=== PATIENT | male | born 1955 | race Caucasian/White ===

== ENCOUNTER 2023-08-04 14:56 | Outpatient (CLI) | payer MEDICARE, SELFPAY ==
--- NOTE | 2023-08-04 15:30 | MR_ITS ---
[address] [address] Phone:?[phone] Fax:?[phone] Referring Physician Information: Narciso Stockton M.D. [address] [facility] [address] Phone:?[phone] Fax:?[phone] Patient:Minal Escobar D.O.B:?1955 Sex:?Male Phone:?[phone] [facility] MRN:?[id number] Exam Date:?08/04/2023 EXAM: MRI OF THE RIGHT KNEE CLINICAL INFORMATION: The patient is a 68-year-old with right knee pain. Evaluate for medial meniscal tear. PRIOR SURGERY: None reported. COMPARISON STUDIES: Comparison is made to prior radiographs dated 08/02/2023. TECHNICAL INFORMATION: Imaging was performed on a high-field, 1.5 Graciela MR scanner. Axial proton-density and fat-suppressed T2 imaging of the right knee was performed in addition to sagittal proton-density and sagittal fat-suppressed proton-density imaging. Coronal proton-density and coronal STIR imaging was also produced. FINDINGS: Articular/Extraarticular collections: Effusion: Moderate. Popliteal cyst: Minimal. Loose bodies: No well-defined intra-articular loose bodies are present. Subcutaneous and extraarticular soft tissues: Within normal limits. Osseous structures: There is reactive marrow edema along the medial aspects of the medial femoral condyle and medial tibial plateau, in keeping with the meniscal tearing discussed below. Additional cortical irregularity, subcortical edema, and subcortical cystic change can be seen along the central and posterior articular surfaces of the medial femoral condyle on sagittal series 6 image 24, in keeping with chondromalacia and chondral loss discussed below. No other bony abnormalities about the knee are seen. Ligamentous structures: ACL: Intact and normal in appearance. PCL: Intact and normal in appearance. MCL: Chronic residual changes of a prior incomplete MCL sprain can be seen with thickening and splitting of the proximal and mid fibers on coronal series 7 image 19. Adjacent mild soft tissue edema and/or hemorrhage is noted. No transverse disruption of MCL fibers can be seen. LCL: Intact and normal in appearance. Posterolateral corner: Intact and normal in appearance. Posteromedial corner: No posteromedial corner soft tissue injury. Semimembranosus and pes anserine tendons demonstrate no tendinopathy or associated bursitis. Extensor mechanism/Patellar retinacular structures: Patellar tendon: Intact, without tendinopathy. Quadriceps tendon: Intact, without tendinopathy. Retinacula: The medial and lateral retinacula are intact. The medial patellofemoral ligament is intact. Medial compartment: Medial meniscus: The medial meniscus is abnormal in appearance. There is broad- based, complex tearing of the middle and posterior portions of the medial meniscus seen on sagittal series 5 image 24 as well as on coronal series 7 images 20 and 23. The broad-based area of tearing measures approximately 23 mm in mediolateral dimension and 28 mm in anteroposterior dimension. Extension of the tearing can be seen to the meniscal attachment. No definite evidence for parameniscal cyst formation can be seen. The tearing involves the superior and inferior surfaces as well as the apical free edge. The anterior horn appears intact. Medial femoral condyle: Full-thickness and near full-thickness chondral loss can be seen along the central and posterior articular surfaces of the medial femoral condyle on sagittal series 5 image 24, measuring 28 mm in greatest dimension. Underlying bony changes are seen. Medial tibial plateau: Grade II to III chondromalacia can be seen along the weightbearing surfaces of the medial tibial plateau. Lateral compartment: Lateral meniscus: No evidence for lateral meniscal tearing is present. No evidence for parameniscal cyst formation can be seen. Lateral femoral condyle: No chondromalacia, chondral defect, or osteochondral abnormality. Lateral tibial plateau: No chondromalacia, chondral defect, or osteochondral abnormality. Patellofemoral compartment: Patella: There are broad-based changes of grade II to III chondromalacia involving the patellar apex and adjacent portions of the medial and lateral facets on axial series 3 image 11, measuring 22 mm in mediolateral dimension. No other chondral injuries are seen. Trochlea: No chondromalacia, chondral defect, or osteochondral abnormality. Neurovascular: No definite neurovascular abnormalities are seen. CONCLUSION: 1. Broad-based, complex tearing of the middle and posterior portions of the medial meniscus. No lateral meniscal tearing is seen. 2. 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 3. Chronic incomplete MCL sprain. The cruciate ligaments appear intact. 4. Moderate knee joint effusion and minimal popliteal cyst. AEC Electronically signed on 08/05/2023 10:17:00 AM by Naresh Hernandez M.D.
== END 2023-08-04 14:57 | disposition home or self-care (01) ==
LOC: MRI 14:58
PROVIDERS: PCP Surgery; Visit Provider Orthopaedic Surgery
DX: M25.561 Pain in right knee (principal); S83.231A Complex tear of medial meniscus, current injury, right knee, initial encounter; M22.41 Chondromalacia patellae, right knee; S83.411A Sprain of medial collateral ligament of right knee, initial encounter; M25.461 Effusion, right knee; M71.21 Synovial cyst of popliteal space [Baker], right knee
CPT/HCPCS: 73721

== ENCOUNTER 2023-08-17 10:08 | Day surgery (SDC) | payer MEDICARE, SELFPAY ==
[2023-08-17] VITALS (17 sets, daily range): BP systolic 74–143; BP diastolic 44–85; PULSE 40–52; RESP 12–16; TEMP 36.1–36.6; O2SAT 95–98; BMI 29.2
--- OUTSIDE RECORDS SUMMARY | 2023-08-17 10:10 | XMS_ITS | Clinical Summary ---
Author Name Unknown Organization [facility] Address [place], [place] [address] Care Team Providers Care Lead Software Test Engineer Name Role Phone Kingston Arreola MD Primary Care Provider [phone] Allergies Active Allergy Reactions Criticality Noted Date Comments Amoxicillin Hives Egg Throat Swelling/Closing 08/26/2006 Terbinafine Rash 08/12/2023 Medications Medication Sig Dispensed Refills Start Date End Date Status triamcinolone (ARISTOCORT; KENALOG) 0.1 % creamIndications: Dermatitis Apply topically to affected area(s) 2 times daily. 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 90 Tablet 07/01/2021 08/12/2023 Discontinued (*Patient states no longer taking) Active Problems Problem Noted Date Diagnosed Date Nuclear senile cataract of both eyes 02/23/2020 Presbyopia 02/23/2020 Hyperopia of both eyes 02/23/2020 Displacement of lumbar inter vertebral disc without myelopathy 05/18/2008 Encounters Date Type Department Care Team Description 08/12/2023 11:55 AM CDT Preop Visit [facility] [address] [place] [address] Kingston Arreola MD Preoperative Exam (Right knee orthoscopic surgery 08/17/[address] [facility] [address]. Stockton) 08/12/2023 Travel 08/04/2023 Orders Only [facility] Scanner 1 scan: (1-Ord) PAGETON H+C, KNEE RT, 08/04/2023 from Last 3 Months Immunizations Name Administration Dates Next Due COVID-19 vaccine ([employer] 30mcg/0.3mL) 12YO+ SOHA-SUCROSE PF, MDV 09/25/2021 Td (Age >=7 Years) 07/26/2002 Tdap 07/09/2021,06/05/2011 Zoster (Shingrix-RZV, recombinant) 07/09/2021 Family History Medical History Relation Name Comments Arthritis Father Cancer Father esophageal, d at 72 Heart Disease Father MIs in 50s Arthritis Mother Heart Disease Mother at 83 of CHF. no [place] Diabetes Paternal Aunt Diabetes Paternal Grandfather Cancer-prostate Paternal Uncle in 80s Diabetes Sister 1 type I Diabetes Sister 2 type 2 Relation Name Status Comments Father Mother Paternal Aunt Paternal Grandfather Paternal Uncle Sister 1 Sister 2 Social History Tobacco Use Types Packs/Day Years Used Date Smoking Tobacco: Former Cigarettes 1 30 0 04/12/1964 - 04/12/1994 Smokeless Tobacco: Former Chew Quit: 06/10/2009 Tobacco Cessation:Counseling Given: Yes Alcohol Use Standard Drinks/Week Comments Yes 0 (1 standard drink = 0.6 oz pure alcohol) 2-4 drinks a day; now 1 drink 3-4 days a week PHQ-2 Answer Date Recorded PHQ-2 TOTAL SCORE 0 07/01/2021 Social Connections Answer Date Recorded Frequency of Communication with Friends and Fami ly 0 08/12/2023 Financial Resource Strain Answer Date R ecorded Difficulty of Paying Living Expenses 3 08/12/2023 Difficulty of Paying Living Expenses Not on file 08/12/2023 Food Insecurity Answer Date Recorded Worried About Running Out of Food in the Last Ye ar 1 08/12/2023 Transportation Needs Answer Date Record ed Lack of Transportation (Medical) 1 08/12/2023 Housing Stability Answer Date Recorded Unable to Pay for Housing in the Last Year 1 08/12/2023 Sex and Gender Information Value Date Recorded Sex Assigned at Not on file Gender Identity Not on file Sexual Orientation Not on file Obstetrics History Last Filed Vital Signs Vital Sign Reading Time Taken Comments Blood Pressure 119/76 08/12/2023 11:55 AM CDT Pulse 52 08/12/2023 11:55 AM CDT Temperature 36.3 ??C (97.4 ??F) 11/24/2018 9:53 AM CD T Respiratory Rate - - Oxygen Saturation 98% 08/12/2023 11:55 AM CDT Inhaled Oxygen Concentration - - Weight 92.5 kg (204 lb) 08/12/2023 11:55 AM CDT Height 181 cm (5' 11.26) 07/01/2021 10:47 AM CD T Body Mass Index 28.24 07/01/2021 10:47 AM CDT Plan of Treatment Health Maintenance Due Date Last Done Comments AAA screening age 65-74 01/03/2020 Pneumococcal series for age 65+ (1 of 1 - PCV) 01/03/2020 Zoster (shingles) series for age 50+ (2 of 2) 09/03/2021 07/09/2021 BMI (ht and wt on same day) for age 18+ 07/01/2022 07/01/2021, 09/27/2018, 08/25/2018, Additional history exists Depression screening for age 12+ 07/02/2022 07/02/2021, 07/01/2021, 09/27/2018, Additional history exists Medicare Wellness for age 65+ 07/02/2022 07/01/2021 COVID-19 vaccine series (2022- season) 2022 09/25/2021, 02/11/2021, 07/13/2020, Additional history exists Colonoscopy through age 75 09/01/202308/31 ([facility]), 08/26/2006, 08/26/2006, Additional history exists Lipids for age 45-75 07/01/2026 07/01/2021, 09/27/2018, 06/22/2016, Additional history exists Tetanus booster 07/10/2031 07/09/2021, 05/14, 07/26/2002 Hepatitis C screening for ag e 18-79 Completed 06/22/2016 Tdap Completed 07/09/2021, 06/05/2011 Procedures Procedure Name Priority Date/Time Associated Diagnosis Comments SCAN-MRI INTERPRETATION 08/04/19 24 12:00 AM CDT LIPID PANEL Routine 07/01/2021 12:02 PM CDT Screening, lipid ANTI HCV Routine 06/22/2016 9:04 AM CDT Need for hepatitis C screening test SCAN-COLONOSCOPY 08/26/2006 9:00 AM CDT from Last 3 Months or Most Recently Relevant to Health Maintenance Results * SCAN-MRI INTERPRETATION (08/04/2023 12:00 AM CDT) Anatomical Region Laterality Modality Other Scanner OTHER * (ABNORMAL) LIPID PANEL (07/01/2021 12:02 PM CDT) CHOLESTEROL,TOTAL 209(H) 100 - 199 mg/dL 07/01/2021 10:01 PM CDT [facility] TRIGLYCERIDES 150(H) <150 mg/dL 07/01/2021 10:01 PM CDT [facility] HDL CHOLESTEROL 38(L) >40 mg/dL 10:01 PM CDT [facility] NON-HDL CHOLESTEROL 171(H) <145 mg/dl 07/01/2021 10:01 PM CDT [facility] CHOL/HDL RATIO 5.50(H) <4.50 07/01/2021 10:01 PM CDT [facility] LDL CHOLESTEROL 141(H) <=130 mg/dL 07/01/2021 10:01 PM CDT [facility] VLDL CHOLESTEROL 30 <=30 mg/dL 07/01/2021 10:01 PM CDT [facility] PROVIDER ORDERED STATUS RANDOM 07/01/2021 10:01 PM CDT [facility] Blood BLOOD SPECIMEN / Unknown Venipuncture / Unknown 07/01/2021 12:02 PM CDT 07/01/2021 12:04 PM CDT Kingston Arreola MD CHEMISTRY [facility] [address] [place] [address], [place] * ANTI HCV [71396.2] (06/22/2016 9:04 AM CDT) HEPATITIS C ANTIBODY Non-Reacti ve Non-Reacti ve 06/22/2016 6:08 PM CDT [facility] Blood BLOOD SPECIMEN / Unknown Venipuncture / Unknown 06/22/2016 9:04 AM CDT 06/22/2016 9:04 AM CDT Narrative [facility] [employer] - 06/22/2016 6:08 PM CDT Antibodies to HCV not detected; does not exclude the possibility of exposure to HCV. Kingston Arreola MD SEND OUTS [facility] [employer] [address] [place] [address], [place] * SCAN-COLONOSCOPY (08/26/2006 9:00 AM CDT) Scanner OTHER from Last 3 Months or Most Recently Relevant to Health Maintenance Care Teams Lead Software Test Engineer Relationship Specialty Start Date End Date Kingston [place] [address] PCP - General Family Practice 07/01/21
[2023-08-17] MEDS: SODIUM CHLORIDE 0.9 % (FLUSH) 10 ML SYRINGE IVF (10:20)
[2023-08-17] MEDS: LACTATED RINGERS 1000 ML 1,000 ML 100 ML IV (10:20)
[2023-08-17] MEDS: CEFAZOLIN 2 GM INJ IVP (11:25)
[2023-08-17] MEDS: BUPIVACAINE 0.25% 30 ML INJECTION (11:44)
--- NOTE | 2023-08-17 11:49 | PM.ORPRC ---
Procedure Note Date of procedure: 08/17/23 Procedure: PREOPERATIVE DIAGNOSIS: Right knee medial meniscus tear POSTOPERATIVE DIAGNOSIS: Right knee medial meniscus tear NAME OF OPERATION: Right knee arthroscopic partial medial meniscectomy SURGEON: Narciso Stockton MD SURGICAL SUPPLIES STERILIZER: LOUIE Mendez ANESTHESIA: Spinal ESTIMATED BLOOD LOSS: 0 mL COMPLICATIONS: None SPECIMENS: None DRAINS: None PREOPERATIVE ANTIBIOTICS: Ancef 2 gram INDICATIONS: The patient is a 68-year-old with a history of right knee medial pain. MRI scan is consistent with a medial meniscus tear. Despite appropriate nonoperative management, including activity modification, antiinflammatories, [id number] pain medication, bracing, physical therapy, and injections they continue to have pain and disability. Operative intervention was offered. The risks, benefits and expected outcomes were discussed in detail. These included but were not limited to: Infection, bleeding, injury to blood vessel or nerve, venous thromboembolism. All questions were answered to their satisfaction. PROCEDURE: Spinal anesthesia was administered. The patient was placed supine on the operating room table. The right lower extremity was prepped and draped in the usual sterile fashion. The limb was exsanguinated with the Tang bandage. The pneumatic tourniquet was inflated to 300 mmHg. A standard anterolateral portal was established. The arthroscope was introduced. The working portal was established anteromedially. Diagnostic arthroscopy was performed with findings as follows: The suprapatellar pouch is normal. Articular surface on the patella shows diffuse grade 1/2 change. Articular surface on the trochlea is normal. The medial gutter is normal. The medial compartment shows diffuse grade 3 change on the medial femoral condyle, grade 2 change on the medial tibial plateau. The medial meniscus has a complex degenerative tear of the posterior horn. This primarily consists of a small radial tear of the leading edge with some undersurface horizontal cleavage tearing. The root is intact. The notch shows the ACL to be intact. The lateral compartment shows normal articular cartilage on the lateral femoral condyle and lateral tibial plateau. The lateral meniscus is normal. The lateral gutter is normal. The posterior horn and midbody of the medial meniscus was debrided to a stable base using a combination of baskets and dixie through both portals. Unstable chondral flaps on the medial femoral condyle were debrided with the shaver. Arthroscopic instruments were removed, the portal sites were Steri-Stripped closed, the knee was infiltrated with 30 mL of 0.25% Marcaine without epinephrine. A dry dressing was applied, the tourniquet was released. Sponge and needle counts were correct x 2. The patient tolerated the procedure well. There were no apparent complications. They were carefully transferred to the hospital bed and taken to the postanesthesia care unit in satisfactory condition. PLAN: The patient will be discharged to home. They may weightbear as tolerates. Range of motion will be unrestricted. They will follow up in the office next week for a wound check.
--- NOTE | 2023-08-17 11:57 | W.ANESCHARGE ---
Anesthesia Charges Start Date/Time Anesthesia Start Date: 08/17/23 Anesthesia Start Time: 11:09 Stop Date/Time Anesthesia Stop Date: 08/17/23 Anesthesia Stop Time: 12:03
[2023-08-17] MEDS: LACTATED RINGERS 1000 ML 1,000 ML 35 ML IV (12:33)
--- NOTE | 2023-08-17 12:46 | SUR.PHASEI ---
patient met discharge criteria per anesthesia
--- NOTE | 2023-08-17 13:24 | W.ANESCHARGE ---
Anesthesia Charges Start Date/Time Anesthesia Start Date: 08/17/23 Anesthesia Start Time: 11:09 Stop Date/Time Anesthesia Stop Date: 08/17/23 Anesthesia Stop Time: 12:03
== END 2023-08-17 14:25 | disposition home or self-care (01) ==
LOC: OR 10:08
PROVIDERS: PCP Surgery; Visit Provider Orthopaedic Surgery
PROC: (CPT 29882; principal; 2023-08-17 11:30)
DX: M23.221 Derangement of posterior horn of medial meniscus due to old tear or injury, right knee (principal)
CPT/HCPCS: 29881; 01400; J0665; J0690; J2250; J2405; J2704; J3010; J7120

== ENCOUNTER 2023-09-03 07:51 | Outpatient (RCR) | payer MEDICARE, SELFPAY ==
--- NOTE | 2023-09-03 10:50 | PT.OPEX ---
PT [facility] Outpatient Eval PT [facility] Outpatient Eval Start: 09/03/23 10:08 Freq: Status: Active Protocol: Document 09/03/23 10:18 MATTI (Rec: 09/03/23 10:44 MATTI [id number]) E-signed By Sabrina Hernandez DPT Physical Therapy Outpatient Evaluation Insurance Information Recert Due Date 12/02/23 Insurance Name Katharine Medical Diagnosis s/p R partial medial meniscectomy 08/17/23 Treating Diagnosis s/p R partial medial meniscectomy 08/17/23 with R knee pain, impaired R knee ROM , core/hip/glut/quad weakness, limited tolerance for extended walking/inclines/ running Subjective Subjective Patient reports chronic R knee pain leading up to R knee scope for partial medial meniscectomy on 08/17/23. States he has been walking without an AD, progressing his activities as able after surgery. States he was told he has no restrictions. He is back to golfing, walking, swimming. States he goes to the [employer]. He has not gotten back to running. Hasn' t started biking yet but is hoping to get back on his link trainer and then back to outdoor biking. He reports some increased pain with walking inclines, golfing. Pain range 0-5/10. He is not using pain meds. Icing 2x/day . Date of Last Physician Visit 08/25/23 Date of Surgery (If applicable) 08/17/23 Current Work Status Retired Precautions Treatment Precautions/Contraindications hx LBP, s/p R knee scope 08/16 Assessment Assessment/Impression Patient is a 68 year old male s/p R partial medial meniscectomy 08/17/23 with R knee pain, impaired R knee ROM , core/hip/glut/quad weakness, limited tolerance for extended walking/inclines/ running. Pain range 0-5/10. Patient is active and reports he has returned to some activities after his surgery including golfing, some walking, and swimming. He is hoping to return to biking, running and improve his walking on hills/uneven ground . Patient with hx of LBP. R quad atrophy noted vs L and patient reports hx of chronic R knee pain leading up to his surgery so feels he has been favoring R knee/LE for awhile. Core/hip/glut/quad weakness noted with exercises. Patient reports feeling of R knee instability with certain movements, twisting with golf swing, walking inclines. R knee ROM 0-3-130 degrees. Patient with R hamstring tightness, R calf tightness that is limited full ext at this time. Reviewed stretching and the importance of getting full ext. L knee ROM 0-0-140 degrees. Gait is mildly limping without an AD. Patient is challenged with higher end balance activities, sharpened rhomberg R/L and SLS R/L with EO/EC. Patient goal is to get some exercises that he can focus on in his HEP. He will follow up with PT as needed. Plan to hold chart x 6-8 weeks pending patient return for progression of exercises as needed as he works back to his normal daily activities and workout routines. Patient would benefit from skilled PT for pain/sx management, improved R knee ROM, core/hip/glut/quad strengthening, balance/ proprioception training, improved gait, and establishment of HEP. Plan of Care Rehabilitation Potential Good Physical Therapy Goals 1. Decrease R knee pain to less than/equal to 3/10 with daily activities and with the progression of PT activities over the next 4-6 weeks. 2. Improve R knee ROM to 0- 130 degrees or greater over the next 6-8 weeks for return to functional knee ROM and improved gait mechanics. 3. Improve R knee/LE mobility /strength over the next 8-10 weeks for return to normal gait, walking inclines/hill/uneven surfaces without increased pain, and return to full daily activities and workout routine per PLF without flare up of knee pain. 4. Patient will be I with HEP within 10 weeks for progression toward above goals, ongoing self-management of pain/swelling, ongoing self improvements in R knee ROM/strength, return to normal gait without an AD, and return to full daily/ workout activities without flare up of R knee pain. Coordination/Communication With Referral Source Treatment Plan/Direct Interventions Manual Therapy,Therapeutic Exercises Frequency/Duration 6-8 visits as needed, patient would like to focus on HEP and will return to PT as needed over the next 2-3 months for progression of exercises Patient Will Be Discharged From Therapy Completion of LTG(s),Skills Plateau,Independent w/HEP, Independently Progressing Evaluation Billing Untimed Code Treatment Minutes 20 Complexity Moderate Certification Information Initial Certification Date 09/03/23 Ending Certification Date 12/02/23 Provider Signature Shows Agreement With POC & Medical Necessity Physician Signature & Date Requested Please Sign/Date Here Physician Comment/Change : Physician NPI Number #
== END 2023-12-07 15:39 | disposition home or self-care (01) ==
PROVIDERS: PCP Surgery; Visit Provider Physician Assistant
DX: Z98.890 Other specified postprocedural states (principal); Z87.828 Personal history of other (healed) physical injury and trauma; M25.561 Pain in right knee; Z74.09 Other reduced mobility; R29.898 Other symptoms and signs involving the musculoskeletal system; Z51.89 Encounter for other specified aftercare
CPT/HCPCS: 97110; 97162